=== PATIENT | female | born 1950 | race Caucasian/White ===

== ENCOUNTER 2018-02-11 13:33 | Emergency (ER) | payer MEDICARE ==
[2018-02-11 13:46] VITALS: RESP 18
--- NOTE | 2018-02-11 14:24 | XR ---
EXAMINATION TYPE: XR wrist complete RT DATE OF EXAM: 02/11/2018 COMPARISON: NONE HISTORY: Pain TECHNIQUE: Four views submitted. FINDINGS: There is a comminuted intra-articular fracture distal radius. Chip fracture of the ulnar styloid note d. There is dorsal angulation of the fracture fragment. Remaining osseous structures intact. IMPRESSION: 1. Comminuted displaced intra-articular fracture distal radius. 2. Chip fracture ulnar styloid.
--- NOTE | 2018-02-11 14:43 | ED ---
Fall HPI - General Chief Complaint: Fall Stated Complaint: Fall/Wrist Pain Time Seen by Provider: 02/11/18 13:47 Source: patient Mode of arrival: ambulatory - History of Present Illness Initial Comments: This is a 67-year-old female with no past medical history who presents emergent department after a slip and fall. She states that she was out playing putt putt when she tripped and fell. She states that she injured her right wrist. She does admit to hitting her head however did not lose consciousness. She states that she feels a little bit woozy however states that she has no headache , no nausea, no vomiting. She states that she did come in mostly for the right wrist pain. In fact when she first came in she did not complain of anything except for the right wrist. She denies any other injuries. States that she had no preceding symptoms such as chest pain or shortness of breath. No presyncope. States that it was purely mechanical fall. - Related Data Home Medications Medication Instructions Recorded Confirmed FLUoxetine HCL [PROzac] 20 mg PO DAILY 02/11/18 02/11/18 Previous Rx's Medication Instructions Recorded Acetaminophen with Codeine 1 tab PO Q6H PRN 3 Days #12 tab 02/11/18 [Tylenol w/codeine #3] Allergies Allergy/AdvReac Type Severity Reaction Status Date / Time No Known Allergies Allergy Unverified 02/11/18 13:59 Review of Systems ROS Statement: Those systems with pertinent positive or pertinent negative responses have been documented in the HPI. ROS Other: All systems not noted in ROS Statement are negative. Past Medical History Past Medical History: No Reported History History of Any Multi-Drug Resistant Organisms: None Reported Additional Past Surgical History / Comment(s): Cyst removal from breast Past Psychological History: Depression Smoking Status: Former smoker Past Alcohol Use History: Daily Past Drug Use History: None Reported General Exam - General Exam Comments Initial Comments: Constitutional: Awake alert Appears comfortable Head: Normocephalic atraumatic Eyes: no conjunctival injection No scleral icterus EOMI, pupils are 4 mm reactive bilaterally Neck: No JVD Supple Heart: Regular rate rhythm normal S1-S2 no murmurs Lungs: Clear to auscultation bilaterally No wheezing No rales Abdomen: Soft nondistended nontender Extremities: Non edematous DP pulses intact Radial pulses intact, there is tenderness to palpation over the right distal radius with some overlying swelling and mild ecchymosis, the patient has guarded range of motion. Neurovascularly intact distally Neuro: A&Ox3, speech is clear, cranial nerves II through XII are grossly intact , no focal neurologic deficits Psych: [Appropriate mood andaffect] Limitations: no limitations Course Vital Signs 02/11/18 13:41 Temperature 98.7 F Pulse Rate 51 L Respiratory 18 Rate Blood Pressure 92/58 O2 Sat by Pulse 100 Oximetry Procedures - Orthopedic Splinting/Casting Injury #1 Side: right Upper Extremity Injury Location: wrist Upper Extremity Immobilizer: sugar tong splint Additional Comments: Placed in Sling Medical Decision Making - Medical Decision Making For Dr. Luna. Told to make an appointment as soon she left the ER. The patient did not have any evidence for head trauma examination. She was neurologically intact throughout the entire stay. Neck complain of headache. Did mention that if she developed any headache, nausea, vomiting to return emergency Department for reevaluation. All questions were answered Disposition Clinical Impression: Distal radius fracture, right Disposition: HOME SELF-CARE Condition: Stable Instructions: Wrist Fracture in Adults (ED) Prescriptions: Acetaminophen with Codeine [Tylenol w/codeine #3] 1 tab PO Q6H PRN 3 Days #12 tab PRN Reason: Pain Is patient prescribed a controlled substance at d/c from ED?: Yes When asked, does pt state using other controlled substances?: No If prescribed controlled substance>3 days was MAPS reviewed?: Prescribed <3 Days If opioid is for acute pain is fill amount 7 days or less?: Yes If Rx opioid, was Start Talking consent form obtained?: Yes Referrals: Eduardo Tan MD [Primary Care Provider] - 1-2 days Jay Luna MD [STAFF PHYSICIAN] - 1-2 days
[2018-02-11 14:53] VITALS: BP 130/65; PULSE 74; TEMP 98
== END 2018-02-11 14:53 | disposition home or self-care (01) ==
LOC: EC 13:33
DX: S52.501A Unspecified fracture of the lower end of right radius, initial encounter for closed fracture (principal); F32.9 Major depressive disorder, single episode, unspecified; Z87.891 Personal history of nicotine dependence; Z79.899 Other long term (current) drug therapy; W01.0XXA Fall on same level from slipping, tripping and stumbling without subsequent striking against object, initial encounter; Y93.6A Activity, physical games generally associated with school recess, summer camp and children; Y92.89 Other specified places as the place of occurrence of the external cause
CPT/HCPCS: 29125; 99283

== ENCOUNTER → 2020-02-27 | Outpatient (CLI) | payer MEDICARE | END | disposition home or self-care (01) | LOC: LABPAT 09:08 | PROVIDERS: ATTEND Orthopaedic Surgery | DX: Z01.812 Encounter for preprocedural laboratory examination (principal) | CPT/HCPCS: 36415; 86850; 86900; 86901; 87070 ==

== ENCOUNTER 2020-03-08 06:26 | Day surgery (SDC) | payer MEDICARE ==
[2020-02-27 16:43] VITALS: BMI 21.2
--- NOTE | 2020-03-07 13:23 | HP ---
HISTORY AND PHYSICAL REASON FOR ADMISSION: Surgery scheduled 03/08/2020 Shantelle Francis is a 69-year-old patient seen with progressive right hip pain. We discussed options for treatment. She elected to proceed with right total hip arthroplasty via direct anterior approach. Consent was obtained. Medical clearance was provided by Dr. Zane Tan. PAST MEDICAL HISTORY: Noncontributory. PAST SURGICAL HISTORY: Noncontributory. MEDICATIONS: Prozac. ALLERGIES: None. SOCIAL HISTORY: She denies tobacco use. PHYSICAL EXAMINATION: Evaluation of the right hip, there is limited range of motion with severe pain. Positive impingement sign. Straight leg raise negative. Diffuse tenderness about the hip girdle. Distal neurovascular exam intact. RADIOGRAPHS: Radiographs of the right hip reveals severe osteoarthritic changes. IMPRESSION: Right hip osteoarthritis. PLAN: Direct anterior right total hip arthroplasty. MMODL / IJN: [id number] /
[~2020-03-08 06:26] MED LIST: ACETAMINOPHEN TAB 500 MG TAB PO ONE; MELOXICAM 7.5 MG TAB PO ONE; ROPIVACAINE 246.25 MG, EPINEPHrine 0.5 MG, KETOROLAC 30 MG, cloNIDine HCL/PF 80 MCG, WA... MISCELLANE ONE; TRANEXAMIC ACID 1,000 MG in SODIUM CHLORIDE 0.9% 100 ML IVPB ONE
[2020-03-08] MEDS ORDERED: HYDROmorphone 0.5 MG/0.5 ML SYRINGE IVP PRN ×4 (06:36→09:04)
[2020-03-08] MEDS ORDERED: MIDAZOLAM 2 MG/2 ML VIAL IV PRN (06:36)
[2020-03-08] MEDS ORDERED: LACTATED RINGERS 1,000 ML IV SCH (06:36)
[2020-03-08] MEDS ORDERED: DEXAMETHASONE SOD PHOSPHATE 10 MG/ML 1 ML VIAL IV ONE (06:36)
[2020-03-08] MEDS ORDERED: ONDANSETRON 4 MG/2 ML VIAL IVP ONE (06:36)
[2020-03-08] MEDS ORDERED: ACETAMINOPHEN TAB 500 MG TAB ONE (06:48)
[2020-03-08] MEDS ORDERED: ONDANSETRON 4 MG/2 ML VIAL ONE (06:49)
[2020-03-08] MEDS ORDERED: LIDOCAINE 1% (10MG/ML) FOR IV START INTRADERMA ONE (07:00)
[2020-03-08] MEDS ORDERED: PROPOFOL 10 MG/ML 20 ML VIAL IV ONE (07:25)
[2020-03-08] MEDS ORDERED: fentaNYL (PF) 50 MCG/ML 2 ML AMP ONE (07:25)
[2020-03-08] MEDS ORDERED: NEOSTIGMINE 1 MG/ML 10 ML VIAL ONE (07:25)
[2020-03-08] MEDS ORDERED: MIDAZOLAM 2 MG/2 ML VIAL ONE (07:25)
[2020-03-08] MEDS ORDERED: LIDOCAINE 1% INJ 10MG/ML (20 ML MDV) ONE (07:25)
[2020-03-08] MEDS ORDERED: ROCURONIUM 10 MG/ML (5 ML VIAL) IV ONE (07:25)
[2020-03-08] MEDS ORDERED: GLYCOPYRROLATE 0.2 MG/ML 2 ML VIAL ONE (07:25)
[2020-03-08] MEDS ORDERED: SUCCINYLCHOLINE CHLORIDE 100 MG/5 ML SYR IV ONE (07:25)
[2020-03-08] MEDS ORDERED: HYDROmorphone (PF) 1 MG/ML ONE (07:25)
[2020-03-08] MEDS ORDERED: TRANEXAMIC ACID 1,000 MG/10 ML VIAL ONE (07:25)
[2020-03-08] MEDS ORDERED: ePHEDrine SULFATE/0.9% NACL/PF 50 MG/5 ML SYRINGE IV ONE (07:25)
[2020-03-08] MEDS ORDERED: SODIUM CHLORIDE 0.9% 100 ML BAG ONE (07:25)
[2020-03-08 07:30] LABS: Prothrombin Time 10.3 sec (9.0-12.0)
[2020-03-08] MEDS ORDERED: LACTATED RINGERS 1,000 ML IV ONE ×2 (08:50→09:04)
[2020-03-08] MEDS ORDERED: NALOXONE 0.4 MG/ML 1 ML VIAL IV PRN (09:04)
[2020-03-08] MEDS ORDERED: HYDROcodone/APAP 5-325MG 1 EACH TAB PO PRN ×2 (09:04)
[2020-03-08] MEDS ORDERED: ONDANSETRON 4 MG/2 ML VIAL IVP PRN (09:04)
--- NOTE | 2020-03-08 09:04 | P.OP ---
Date of Procedure: 03/08/20 Preoperative Diagnosis: Right hip osteoarthritis Postoperative Diagnosis: Right hip osteoarthritis Procedure(s) Performed: Direct anterior right total hip arthroplasty Implants: 1. Depuy Corail KA standard with collar size 10 press-fit femoral stem 2. Depuy Gary 54 press-fit acetabular shell 3. Depuy Gary neutral polyethylene acetabular liner 36 mm ID 54 mm OD 4. Biolox delta ceramic femoral head +1.5 36 Anesthesia: [facility], local Surgeon: Ham Walker Lot Associate #1: Jamie Caldera Estimated Blood Loss (ml): 150 Pathology: other (Femoral head) Condition: stable Disposition: PACU Indications for Procedure: 69-year-old patient seen with symptomatic right hip osteoarthritis. After treatment options were discussed, she elected to proceed with total hip arthroplasty. Operative Findings: See description of procedure Description of Procedure: The patient was taken to the operative suite. Patient underwent a general anesthetic by the department of anesthesia. Patient was then transferred to the [place] table. Patient was given preoperative IV antibiotics and TXA. Both lower extremities were placed in standard leg spars. The hip was then prepped and draped in the normal sterile orthopedic fashion. A standard anterior incision was made beginning 3 cm lateral and 1 cm distal to the ASIS extending 10 cm. Dissection was then carried down through the subcutaneous soft tissues down to the fascia overlying the tensor fascia kendy. An incision was now made through the fascia. Careful dissection was taken down exposing the tensor fascia kendy muscle. A Cobra retractor was now placed along the medial femoral neck and a second one along the lateral femoral neck. The venous circumflex vessels were now identified, cauterized and clipped. We identified the anterior hip capsule. An incision was made through the hip capsule along the lateral border. I performed a partial anterior capsulectomy. Retractors were now placed around the femoral neck itself. A femoral neck cut was now made with a sagittal saw. It was completed with an osteotome at the lateral neck area. The femoral head was now removed without difficulty. The extremity was now rotated to 45 of external rotation. It was locked in position. Residual labrum was now debrided out. Serial reaming was performed of the acetabulum while Alonso WADSWORTH assisted holding an anterior retractor for exposure. Once we reached the appropriate size and a trial was position and fit nicely. The appropriate size was now chosen opened and made available. It was introduced into the acetabulum without difficulty. The C-arm/fluoroscopy was now brought into the operative field. We made sure we had a true AP pelvic view. We now under direct C- arm/fluoroscopy introduced into the acetabular component with appropriate version and inclination. I held the cup in appropriate position well Alonso WADSWORTH used a mallet to seat the acetabular component. I noted the component now to be well seated and stable. Acetabular cup introduce her was removed. The C-arm was pulled back. An appropriate liner was introduced and clicked into position. It was felt to be stable. At this point retractors were removed. The extremity was now placed into 120 external rotation with no traction. The leg was now dropped to the ground and adducted. Appropriate retractors were now positioned along the proximal femur. We also placed our femoral look into position. Additional capsular releasing was performed to gain access to the proximal femur. We now used a box osteotome. A canal finder was now utilized. Serial broaching was now performed with the assistance of Alonso WADSWORTH tapping the broaches down with a mallet while held the broach in appropriate rotation and position. This was done until we reached the appropriate size with good overall rotational stability. Appropriate calcar planing was performed. A trial head/neck was placed into position. The hip was now reduced. The C- arm/fluoroscopy was brought back into the operative field. A spot film was obtained of the nonoperative hip. A spot film was obtained of the trial components. Overlays were performed, we noted good overall alignment and positioning for determining leg length. The C-arm/fluoroscopy was pulled back. Retractors were repositioned and the hip was dislocated. The leg was again taken down to the ground and adducted. Appropriate retractors were repositioned as well as the femoral hook. All trial components were removed. The femoral implant was opened along with the femoral head. The femoral implant was introduced on the appropriate handle into our pre-broached area. I held the component position well Alonso WADSWORTH used a mallet to seat the femoral component. The femoral component was now noted to be well seated and stable.. The femoral head was introduced with good positioning and fixation noted. Retractors were now removed. The hip was now reduced. There appeared be good positioning of the hip confirmed on intraoperative fluoroscopy. Spot films were obtained to document this. A second gram of TXA was given. The deep and superficial soft tissues were infiltrated with local analgesic. Bipolar cautery had been utilized intermittently through the procedure for hemostasis. The wound was irrigated copiously with pulse lavage mechanical irrigation. The fa scia was repaired with Vicryl suture. The subcutaneous soft tissues were repaired in layers with Vicryl suture. The skin was approximated with pernio/Dermabond. Sterile dressings were applied. Patient was then awakened, transferred to a bed and taken to recovery in stable condition. Alonso WADSWORTH assisted with the complex procedure.
--- NOTE | 2020-03-08 09:12 | FL ---
EXAMINATION TYPE: FL guidance operating room DATE OF EXAM: 03/08/2020 CLINICAL HISTORY: Right hip pain and advanced osteoarthritis. TECHNIQUE: Fluoroscopy. Intraoperative limited views right hip. COMPARISON: Outside right hip x-ray February 17, 2020. FINDINGS: Fluoroscopic guidance was provided during hip replacement procedure performed by Dr. Mitchell low. A total of 16 seconds of fluoroscopic time was utilized during the procedure and 2 spot intrao perative images are acquired. Intraoperative images acquired show metallic hardware from total right hip arthroplasty satisfactory position on frontal projection with surrounding air noted at the metallic femoral neck. IMPRESSION: As Above.
[2020-03-08 09:32] VITALS: TEMP 97.1
[2020-03-08 14:49] VITALS: BP 150/80; PULSE 97; RESP 18
== END 2020-03-08 15:57 | disposition home health service (06) ==
LOC: OR 06:26
PROVIDERS: ATTEND Orthopaedic Surgery
DX: M16.11 Unilateral primary osteoarthritis, right hip (principal); F32.9 Major depressive disorder, single episode, unspecified; Z87.891 Personal history of nicotine dependence; Z79.899 Other long term (current) drug therapy
CPT/HCPCS: 97116; 97110; 97161; 86900; 86901; 85610; 86850; 88300; 73501; 36415; 27130; C1776; J2250; J0171; J1100; J2710; J0690; J2405; J2001; J3010; J1885; J1170; J2795; J0330; J2704; J0735